=== PATIENT | female | born 1950 | race Caucasian/White ===

== ENCOUNTER 2017-06-12 11:36 | Emergency (ER) | payer MEDICARE, BC, OTHER ==
[2017-06-12 11:56] VITALS: BP 114/73
--- NOTE | 2017-06-12 12:32 | UC ---
Respiratory Complaint HPI - HPI Summary HPI Summary: Pt presents with a 6 day history of sinus congestion/pain/pressure, PND, and productive cough. She has a history of chronic sinusitis and is seeing ENT in 3 days. She has been using OTC dayquil and nyquil with mild relief. Has felt feverish and chills at times with some loose stools. Denies chest pain, N/V/D/C , or sore throat. - History of Current Complaint Hx Obtained From: Patient Onset/Duration: Gradual Onset Severity Initially: Moderate Severity Currently: Moderate Pain Intensity: 6 Pain Scale Used: 0-10 Numeric Character: Cough: Productive Aggravating Factors: Exertion, Deep Breaths Alleviating Factors: OTC Meds Associated Signs And Symptoms: Positive: Fever, Wheezing. Negative: Dizziness <Janes Wolf - Last Filed: 06/12/17 17:39> <Esmer Ly - Last Filed: 06/12/17 19:04> - History of Current Complaint Chief Complaint: UCRespiratory Stated Complaint: RESPIRATORY COMPLAINT - Allergies/Home Medications Allergies/Adverse Reactions: Allergies Allergy/AdvReac Type Severity Reaction Status Date / Time Ampicillin Allergy Hives Verified 06/07/12 14:27 Penicillins Allergy Hives Verified 06/07/12 14:27 PMH/Surg Hx/FS Hx/Imm Hx Previously Healthy: Yes - Surgical History Surgical History: Yes Surgery Procedure, Year, and Place: 1998 LEFT ACL RECONSTRUCTION, [facility] [place]. 2007 LEFT KNEE ARTHROSCOPIC SURGERY, [facility] [place], may 2012 LEFT MENISCUS REPAIR - Social History Occupation: Retired Lives: Alone Alcohol Use: Daily Substance Use Type: None Smoking Status (MU): Never Smoked Tobacco <Janes Wolf - Last Filed: 06/12/17 17:39> Review of Systems Constitutional: Fever, Chills Skin: Negative Eyes: Negative ENT: Nasal Discharge, Sinus Congestion, Sinus Pain/Tenderness Respiratory: Shortness Of Breath, Cough Cardiovascular: Negative Gastrointestinal: Other - Loose stools Genitourinary: Negative Neurovascular: Negative Musculoskeletal: Negative Neurological: Headache Psychological: Negative All Other Systems Reviewed And Are Negative: Yes <Janes Wolf - Last Filed: 06/12/17 17:39> Physical Exam Triage Information Reviewed: Yes Appearance: Well-Nourished, Ill-Appearing Vital Signs: Initial Vital Signs Temp 98.2 F 06/12/17 11:51 Pulse 76 06/12/17 11:51 Resp 18 06/12/17 11:51 BP 114/73 06/12/17 11:51 Pulse Ox 96 06/12/17 11:51 Vital Signs Reviewed: Yes Eyes: Positive: Conjunctiva Clear ENT: Positive: Hearing grossly normal, Pharyngeal erythema, Nasal congestion, Nasal drainage, TMs normal, Sinus tenderness. Negative: TM bulging, TM dull, TM red, Tonsillar swelling, Tonsillar exudate Neck: Positive: Supple, Nontender, No Lymphadenopathy Respiratory: Positive: Chest non-tender, No respiratory distress, No accessory muscle use, Decreased breath sounds - Throughout, Crackles - RML, Wheezing - Throughout Cardiovascular: Positive: RRR, No Murmur, Pulses Normal Abdomen Description: Positive: Nontender, Soft. Negative: Distended, Guarding Bowel Sounds: Positive: Present Neurological: Positive: Alert Psychological: Positive: Age Appropriate Behavior Skin: Negative: rashes <Janes Wolf - Last Filed: 06/12/17 17:39> Vital Signs: Initial Vital Signs Temp 98.2 F 06/12/17 11:51 Pulse 76 06/12/17 11:51 Resp 18 06/12/17 11:51 BP 114/73 06/12/17 11:51 Pulse Ox 96 06/12/17 11:51 <Esmer Ly - Last Filed: 06/12/17 19:04> Diagnostic Evaluation - Laboratory O2 Sat by Pulse Oximetry: 96 <Janes Wolf - Last Filed: 06/12/17 17:39> Respiratory Course/Dx - Course Course Of Treatment: CXR - RIGHT MIDLUNG CONSOLIDATION. RECOMMEND FOLLOW-UP UNTIL RESOLUTION TO EXCLUDE UNDERLYING PULMONARY PARENCHYMAL PATHOLOGY. Rx for levaquin and albuterol. Follow up with PCP in 4-6 weeks to ensure PNA resolution - Differential Dx/Diagnosis Differential Diagnosis/HQI/PQRI: Asthma, Bronchitis, Influenza, Lower Resp Infection, Sinusitis, Other - PNA. Provider Diagnoses: RML Pneumonia. Sinusitis <Janes Wolf - Last Filed: 06/12/17 17:39> Discharge <Janes Wolf - Last Filed: 06/12/17 17:39> <Esmer Ly - Last Filed: 06/12/17 19:04> - Discharge Plan Condition: Stable Disposition: HOME Prescriptions: Albuterol HFA INHALER* [Ventolin HFA Inhaler*] 1 - 2 puff INH Q6H PRN #1 mdi PRN Reason: Sob/Wheezing Levofloxacin TAB* [Levaquin TAB*] 750 mg PO DAILY #5 tab Patient Education Materials: Pneumonia (ED) Referrals: Yuri Nelson MD [Primary Care Provider] - Additional Instructions: 1) Levaquin 750mg once a day for 5 days. 2) Albuterol inhaler 2 puffs every 6 hours as needed for shortness of breath or cough. 3) Rest and drink plenty of fluids! 4) Follow up in 4-6 weeks with your PCP regarding pneumonia. If you develop fever, SOB, chest pain, new or worsening symptoms - please call our office or go to ED. Attestation Statement User Type: Provider - I was available for consult. This patient was seen by the PITO. The patient was not presented to, seen by, or examined by me. -Martin <Esmer Ly - Last Filed: 06/12/17 19:04>
--- NOTE | 2017-06-12 13:06 | RAD ---
HISTORY: Cough COMPARISONS: June 01, 2013 VIEWS: 5: Frontal dual-energy and lateral views of the chest. FINDINGS: CARDIOMEDIASTINAL SILHOUETTE: The cardiomediastinal silhouette is normal. ELLEN: The ellen are normal. PLEURA: The costophrenic angles are sharp. No pleural abnormalities are noted. LUNG PARENCHYMA: There is confluent alveolar opacification of the right middle lobe. There is hyperinflation. ABDOMEN: The upper abdomen is clear. There is no subphrenic gas. BONES AND SOFT TISSUES: No bone or soft tissue abnormalities are noted. OTHER: None. IMPRESSION: RIGHT MIDLUNG CONSOLIDATION. RECOMMEND FOLLOW-UP UNTIL RESOLUTION TO EXCLUDE UNDERLYING PULMONARY PARENCHYMAL PATHOLOGY.
== END 2017-06-12 13:30 | disposition home or self-care (01) ==
LOC: UCEAST 11:36
DX: J18.9 Pneumonia, unspecified organism (principal); J32.9 Chronic sinusitis, unspecified; Z88.0 Allergy status to penicillin; Z88.1 Allergy status to other antibiotic agents
CPT/HCPCS: 71020; 99212; G0463

== ENCOUNTER 2018-12-25 15:46 | Emergency (ER) | payer MEDICARE, BC ==
--- OUTSIDE RECORDS SUMMARY | 2018-12-25 16:06 | XMS REPORT | Continuity of Care Document ---
:1950 External Reference #:[id number] Author Name Facundo Esquivel M.D. Address [address] [facility] [address] [place] [address] Care Team Providers Name Role Phone Yuri Nelson M.D. Primary Care Physician Unavailable Payers Date Identification Numbers Payment Provider Subscriber Policy Number: [id number] Medicare - NGS Esha Carrionon PayID: [id number] [address] [place] [address] Policy Number: [id number] [place] Plan Esha Boucher PayID: [id number] [address] [place] [address] Advance Directives Description No Information Available Problems Active Problems Provider Date Posterior vitreous detachment Heidi Dodson O.D. Onset: 12/23/2014 Meibomian gland dysfunction Heidi Dodson O.D. Onset: 12/23/2014 Nuclear senile cataract Heidi Dodson O.D. Onset: 12/23/2014 Dry eyes Heidi Dodson O.D. Onset: 12/23/2014 Tear film insufficiency Heidi Dodson O.D. Onset: 12/23/2014 Internal hordeolum Heidi Dosdon O.D. Onset: 12/23/2014 Angular blepharoconjunctivitis Heidi Dodson O.D. Onset: 06/16/2015 Other secondary cataract, left eye Derik Brown M.D. Onset: 08/07/2017 Retinal detachment Derik Brown M.D. Onset: 08/07/2017 Conjunctival hemorrhage Facundo Esquivel M.D. Onset: 07/16/2018 Blepharitis Facundo Esquivel M.D. 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 ETOH Use Consumes 2 glasses of wine per day Tobacco Use Start: Unknown Patient has never smoked Recreational Drug Use Never Used Drugs Smoking Status Reviewed: 12/03/18 Patient has never smoked Allergies, Adverse Reactions, Alerts Active Allergies Reaction Severity Comments Date Penicillin 12/23/2014 Ampicillin 12/23/2014 Hydrocodone 07/16/2018 Medications Active Medications SIG Qnty Indications Ordering Date Provider Doxycycline Hyclate 1 caps by mouth 45caps H10.523 Facundo 12/03/2018 twice a day for 2 Angie Esquivel 100mg Capsules weeks then once a day for 2 weeks, then discontinue Neomycin/Polymyxin/ Instill One Drop 10units H01.001 Facundo 08/14/2018 Dexamethasone In Both Eyes 3 Angie Esquivel Times A Day For 2 3.5-75323-2.1 Weeks Thenstop Suspension Erythromycin Apply To Both Eyes 1Tube Facundo 08/14/2018 5mg/GM AT Night Angie Esquivel Ointment Artificial Tears as needed Facundo 07/15/2018 Angie Esquivel 0.2-0.2-1% Solution Xiidra Instill 1 Drop To 180units H04.123 Derik Brown, 08/07/2017 5% Solution Both Eyes Twice A M.D. Day Warm Compresses twice daily - rice Heidi Dodson, 12/22/2014 packs O.D. Turmeric Unknown Doxycycline as needed Mckeithen, Monohydrate Marcos RPA-C 100mg Capsules Clobetasol Mckeithen, Propionate Marcos RPA-C 0.05% Ointment Vitamin B Complex Unknown Tablets Fish Oil 1 by mouth every Heidi Dodson, 1000mg day O.D. Capsules Aspirin Unknown 81mg Tablets Calcium 500 1 by mouth every Unknown day [id number]-mg-Un it Tablets History Medications Neomycin/Polymyxin/Dexamethasone apply one 10ml H01.001 Facundo 2017 - 0.1% Suspension drop to Alvin, 08/14/2018 both eyes, M.D. three times a day for 2 weeks Artificial Tears as needed Heidi Rosen 06/15/2015 - 0.4% Solution Oltz, O.D. 08/06/2017 Genteal PM both eyes Heidi Rosen 06/15/2015 - 85-15% Ointment every Oltz, O.D. 08/06/2017 night Estrace 0.1mg/GM Unknown - Cream 01/01/2016 Immunizations Description No Information Available Vital Signs Description No Information Available Results Description No Information Available Procedures Date Code Description Status 02/06/2018 24279 Est Patient Comprehensive Exam Completed 08/07/2017 38267 Determination Of Refractive State Completed 08/07/2017 97040 Est Patient Comprehensive Exam Completed 01/02/2016 81202 Est Patient Intermediate Exam Completed 06/16/2015 68740 Est Patient Intermediate Exam Completed 10/28/2014 521 Verdon Tears Plus Completed 10/28/2014 518 Genteal Gel Completed 10/24/2014 521 Verdon Tears Plus Completed 10/24/2014 523 Goggles Completed 10/08/2014 70957 Est Patient Comprehensive Exam Completed 10/08/2014 521 Verdon Tears Plus Completed 11/16/2013 36337 Est Patient Intermediate Exam Completed 09/21/2013 17777 Est Patient Comprehensive Exam Completed 03/30/2012 28908 Est Patient Comprehensive Exam Completed 03/17/2011 28123 Est Patient Intermediate Exam Completed 09/03/2010 95469 New Patient Comprehensive Exam Completed 09/03/2010 64027 Repair Detached Retina, Photocoagulation Completed Encounters Type Date Location Provider Dx Diagnosis Office Visit 07/16/2018 Facundo Canelaravivin, H04.123 Dry eye syndrome 12:00p , randall Adams of bilateral lacrimal glands H11.32 Conjunctival hemorrhage, left eye H01.001 Unspecified blepharitis right upper eyelid H01.004 Unspecified blepharitis left upper eyelid Office Visit 12/23/2014 12:30p Heidi Canela 375.15 Dry Eyes (Sicca , randall Dodson O.D. Syndrome) 373.12 Meibomitis Office Visit 11/18/2014 12:15p Heidi Canela, 373.12 Jelena VU, randall Wallace 375.15 Dry Eyes (Sicca Syndrome) Office Visit 10/28/2014 12:15p Heidi Canela, 373.12 Jelena VU, randall Wallace 375.15 Dry Eyes (Sicca Syndrome) Office Visit 10/15/2013 1:00p Derik Rosen 373.12 Jelena Brown MD, randall Dodson O.D. Office Visit 10/18/2010 2:45p Derik Rosen 379.21 Vitreous MD Stephanie, randall Dodson O.D. Degeneration Plan of Treatment 12/03/2018 - Facundo Esquivel M.D.H10.523 Angular blepharoconjunctivitis, bilateralNew Medication:Doxycycline Hyclate 100 mg - 1 caps by mouth twice a day for 2 weeks then once a day for 2 weeks, then discontinueComments:Smoking can increase the risk of developing or worsening any eye related disease, as well as affect your overall health. If you are a smoker, we strongly recommend that you quit.If you are not a smoker, we strongly recommend that you do not start. TAKE THE DOXYCYCLINE ONE PILL TWICE A DAY FOR 2 WEEKS, THEN DECREASE TO ONCE A DAY FOR 2 WEEKS. I WILL CHECK ON YOU AGAIN IN 1 MONTHCONTINUE TO USE THE ARTIFICAL TEARS, XIIDRA AND WARM COMPRESSUSE BABY SHAMPOO ON A WASH CLOTH TO CLEAN THE EYE LASHES A COUPLE TIMES A WEEKTRY AN OVER THE COUNTER ALLERGY DROP, ZADITOR, TWICE A DAY WHEN THE EYE FEEL ITCHY FOR ALLERGY
--- NOTE | 2018-12-25 16:54 | ED ---
Abdominal Pain/Female - HPI Summary HPI Summary: Pt is a 68 y/o F presenting to the ED with a chief complaint of abd pain in the epigastric region onset this morning. She has hx of an epigastric hernia which has never bothered her, but today it began to hurt so she called her physician who recommended coming into the ED. She denies nausea, vomiting, CP, SOB, diarrhea, or constipation. She states the only other time she has this pain is if she exercises. - History of Current Complaint Chief Complaint: EDAbdPain Stated Complaint: ABD PAIN PER PT Time Seen by Provider: 12/25/18 16:43 Hx Obtained From: Patient Onset/Duration: Sudden Onset, Lasting Hours, Still Present Timing: Hours Severity Initially: Mild Severity Currently: Mild Pain Intensity: 3 Pain Scale Used: 0-10 Numeric Location: Epigastric Radiates: No Aggravating Factor(s): Nothing Alleviating Factor(s): Nothing Associated Signs and Symptoms: Negative: Chest Pain, Constipation, Nausea, Vomiting, Diarrhea Allergies/Adverse Reactions: Allergies Allergy/AdvReac Type Severity Reaction Status Date / Time ampicillin Allergy Hives Verified 12/25/18 17:21 oxycodone Allergy Hives Verified 12/25/18 17:21 Penicillins Allergy Hives Verified 12/25/18 17:21 Home Medications: Home Medications DOXYcycline CAP(*) [DOXYcycline 100MG CAP(*)] 100 mg PO DAILY 12/25/18 [History Confirmed 12/25/18] Kennard-3 Fatty Acids/Fish Oil [Fish Oil 1,000 mg Softgel] 2 each PO DAILY [History Confirmed 12/25/18] Vitamin B Complex CAP* [B Complex CAP*] 1 cap PO DAILY 12/25/18 [History Confirmed 12/25/18] PMH/Surg Hx/FS Hx/Imm Hx Previously Healthy: Yes Endocrine/Hematology History: Denies: Hx Diabetes Cardiovascular History: Denies: Hx Hypertension, Hx Pacemaker/ICD Respiratory History: Denies: Hx Asthma GI History: Reports: Other GI Disorders - epigastric hernia History: Denies: Hx Dialysis, Hx Renal Disease Musculoskeletal History: Reports: Hx Arthritis - RIGHT WRIST Denies: Hx Scoliosis Sensory History: Reports: Hx Contacts or Glasses - GLASSES Denies: Hx Hearing Aid Opthamlomology History: Reports: Hx Contacts or Glasses - GLASSES Neurological History: Denies: Hx Headaches, Other Neuro Impairments/Disorders Psychiatric History: Denies: Hx Panic Disorder - Cancer History Hx Chemotherapy: No Hx Radiation Therapy: No - Surgical History Surgery Procedure, Year, and Place: 1998 LEFT ACL RECONSTRUCTION, [facility] [place]. 2007 LEFT KNEE ARTHROSCOPIC SURGERY, [facility] [place], [place] 2012 LEFT MENISCUS REPAIR. 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 Negative: Vomiting, Diarrhea, Nausea, Other - constipation All Other Systems Reviewed And Are Negative: Yes Physical Exam - Summary Physical Exam Summary: Appearance: Well appearing, no pain distress Skin: warm, dry, reflects adequate perfusion Head/face: normal Eyes: EOMI, MARLYN ENT: normal Neck: supple, non-tender Respiratory: CTA, breath sounds present Cardiovascular: RRR, pulses symmetrical Abdomen: Epigastric hernia that is tender Musculoskeletal: normal, strength/ROM intact Neuro: normal, sensory motor intact, A&Ox3 Triage Information Reviewed: Yes Vital Signs On Initial Exam: Initial Vitals Temp Pulse Resp BP Pulse Ox 98.1 F 73 18 136/92 96 12/25/18 15:48 12/25/18 15:48 12/25/18 15:48 12/25/18 15:48 12/25/18 15:48 Vital Signs Reviewed: Yes Diagnostics - Vital Signs Vital Signs Temp Pulse Resp BP Pulse Ox 12/25/18 15:48 98.1 F 73 18 136/92 96 - Laboratory Result Diagrams: 12/25/18 17:12 12/25/18 17:12 Lab Statement: Any lab studies that have been ordered have been reviewed, and results considered in the medical decision making process. - Radiology CXR Radiology Interpretation Completed By: ED Physician Summary of Radiographic Findings: No acute process, pending official radiology report. - CT CT abd/pelv CT Interpretation Completed By: Radiologist Summary of CT Findings: 1. Approximately 6 cm midsagittal ventral fat containing abdominal wall hernia with associated fat stranding. 2. Mild to moderate stool burden throughout the colon. 3. Other chronic findings, as above. ED physician has reviewed this report. - EKG 2018 Cardiac Rate: Bradycardia - 56bpm EKG Rhythm: Sinus Bradycardia ST Segment: Normal Ectopy: None Summary of EKG Findings: EKG at 2018 shows sinus bradycardia at 58bpm. Abdominal Pain Fem Course/Dx - Course Course Of Treatment: Pt is a 68 y/o F presenting to the ED with a chief complaint of abd pain in the epigastric region onset this morning. She denies nausea, vomiting, CP, SOB, diarrhea, or constipation. She states the only other time she has this pain is if she exercises. CT abd/pelv shows: 1. Approximately 6 cm midsagittal ventral fat containing abdominal wall hernia with associated fat stranding. 2. Mild to moderate stool burden throughout the colon. 3. Other chronic findings, as above. I discussed the results with the patient and told her that she had the option to be admitted to [facility] [place] to further her workup. She opted to go home, so I recommended she follow up with Dr. Sullivan tomorrow to get the hernia repaired. She is agreeable with this plan. A CXR and EKG will be done prior to d/c, but her dx will be incarcerated ventral hernia. CXR shows no acute proces, pending official radiology report. EKG at 2018 shows sinus bradycardia at 58bpm. - Diagnoses Differential Diagnosis: Positive: Other - v hernia Provider Diagnoses: Incarcerated ventral hernia Discharge - Sign-Out/Discharge Documenting (check all that apply): Patient Departure Patient Received Moderate/Deep Sedation with Procedure: No - Discharge Plan Condition: Stable Disposition: HOME Patient Education Materials: Ventral Hernia (ED) Referrals: Yuri Nelson MD [Primary Care Provider] - [facility] [Outside] Additional Instructions: Please follow up with Dr. Sullivan tomorrow morning. Return to the emergency department with any new or worsening symptoms. - Billing Disposition and Condition Condition: STABLE Disposition: Home - Attestation Statements Document Initiated by Scribe: Yes Documenting Scribe: Bre Guerrero Provider For Whom Eloiseibe is Documenting (Include Credential): Pato Davis MD. Scribe Attestation: Bre Leonard, scribed for Pato Davis MD. on 12/25/18 at 2039. Scribe Documentation Reviewed: Yes Provider Attestation: The documentation as recorded by the scribe, Bre Guerrero accurately reflects the service I personally performed and the decisions made by me, Pato Davis MD. Status of Scribe Document: Viewed
[2018-12-25] MEDS ORDERED: NS 0.9% 1000 ML** 1,000 ML IV SCH (17:00)
[2018-12-25 17:22] LABS: ABS Basophils 0.1 10^3/ul (0-0.2); ABS Eosinophils 0.3 10^3/ul (0-0.6); ABS Lymphocytes 2.2 10^3/ul (1.0-4.8); ABS Monocytes 0.4 10^3/ul (0-0.8); ABS Neutrophils 3.6 10^3/ul (1.5-7.7); Eosinophil % 4.3 %; Hematocrit 41 % (35-47); Hemoglobin 13.8 g/dL (12.0-16.0); Lymphocyte % 33.7 %; Mean Corpuscular HGB Conc 34 g/dL (31-36); Mean Corpuscular Hemoglobin 33 pg (27-31); Mean Corpuscular Volume 99 fL (80-97); Mean Platelet Volume 6.7 fL (7.4-10.4); Platelet Count 231 10^3/uL (150-450); Red Blood Count 4.17 10^6 /uL (3.70-4.87); Red Cell Distribution Width 14 % (10.5-15); White Blood Count 6.6 10^3/uL (3.5-10.8)
[2018-12-25 17:40] LABS: Activated Partial Thrombo Time 29.5 seconds (26.0-36.3)
[2018-12-25 17:53] LABS: Albumin/Globulin Ratio 1.6 (1-3); Calcium 9.2 mg/dL (8.6-10.3); EGFR African American 93.9 (>60); EGFR Non-African American 77.6 (>60); Globulin 2.5 g/dL (2-4); Potassium 4.4 mmol/L (3.5-5.0); Total Bilirubin 0.3 mg/dL (0.2-1.0); Total Protein 6.5 g/dL (6.4-8.9)
[2018-12-25] MEDS ORDERED: Iohexol 300* (CONTRAST) 10 ML SDV IV ONE (17:56)
[2018-12-25 20:54] VITALS: BP 141/81
== END 2018-12-25 21:15 | disposition home or self-care (01) ==
LOC: ED 15:46
DX: K43.9 Ventral hernia without obstruction or gangrene (principal); R10.13 Epigastric pain; Z88.0 Allergy status to penicillin
CPT/HCPCS: 36415; 71046; 74177; 80053; 83605; 83690; 85025; 85610; 85730; 93005; 96360; 96361; 99283; Q9967

== ENCOUNTER 2019-01-07 10:29 | Day surgery (SDC) | payer MEDICARE, BC ==
[~2019-01-07 10:29] MED LIST: Buffered Lidocaine 1% SYRIN* 1 ML/SYRINGE INTRADERM ONE; Dexamethasone IV* 4 MG/ML 1 ML (4 MG) IV SLOW PU ONE; Famotidine TAB* 20 MG PO ONE; Lactated Ringers 1000 ML Bag* 1,000 ML IV SCH
[2019-01-07] MEDS ORDERED: Clindamycin 900 MG IVPREMIX(* 900 MG/50 ML SDV IV ONE (11:00)
[2019-01-07] MEDS ORDERED: Dexamethasone IV* 4 MG/ML 1 ML (4 MG) ONE (11:00)
[2019-01-07] MEDS ORDERED: Famotidine TAB* 20 MG ONE (11:00)
[2019-01-07] MEDS ORDERED: Buffered Lidocaine 1% SYRIN* 1 ML/SYRINGE INTRADERM ONE (11:01)
[2019-01-07] MEDS ORDERED: fentaNYL* 50 MCG/ML 2 ML VIAL (100 MCG VIAL) ONE (12:08)
[2019-01-07] MEDS ORDERED: Midazolam* 1 MG/ML 2 ML VIAL (2 MG) ONE (12:09)
[2019-01-07] MEDS ORDERED: Propofol* 10 MG/ML 20 ML BTL ONE (12:09)
[2019-01-07] MEDS ORDERED: Acetaminophen TAB* 325 MG PO PRN (12:48)
[2019-01-07] MEDS ORDERED: Ondansetron INJ* 2 MG/ML VIAL IV PRN (12:48)
[2019-01-07] MEDS ORDERED: fentaNYL* 50 MCG/ML 2 ML VIAL (100 MCG VIAL) IV PRN (12:48)
[2019-01-07] MEDS ORDERED: oxyCODONE/Acetamin 5/325 MG* TAB PO PRN (12:48)
[2019-01-07] MEDS ORDERED: Naloxone* 0.4 MG/ML 1 ML VIAL IV PRN (12:48)
[2019-01-07] MEDS ORDERED: Ketorolac INJ* 30 MG/ML 1 ML VIAL IV PRN (12:48)
[2019-01-07] MEDS ORDERED: Bupivacaine 0.5%* 50 ML VIAL ONE (12:58)
[2019-01-07 15:17] VITALS: BP 136/83
--- NOTE | 2019-01-07 15:22 | OP ---
DATE OF OPERATION: 01/07/19 - [facility] DATE OF : 46 SURGEON: Facundo Clark MD PRE-OP DIAGNOSIS: Incarcerated ventral hernia. POST-OP DIAGNOSIS: Incarcerated ventral hernia. OPERATIVE PROCEDURE: Incarcerated ventral hernia, open repair, mesh. INDICATIONS: Incarcerated ventral hernia. Risks of surgery including but not limited to bleeding, infection, injury to intraabdominal contents including the bowel, recurrence of the hernia among others explained to the patient, who seemed to understand and agreed to procedure and all questions were answered. DESCRIPTION OF PROCEDURE: The patient was taken to the operating room and placed supine. Preoperative antibiotics had been given. After the successful induction of sedation, the abdomen was prepped and draped in sterile fashion. Time-out was performed indicating correct patient, correct procedure. A midline incision was made after the skin was anesthetized with Marcaine. It was carried down to the subcutaneous tissue and a peritoneal sac was entered exposing some incarcerated omentum. This was freed up from the surrounding tissue and reduced back to within the abdominal cavity. The defect was then examined. My finger was placed to the defect and the anterior abdominal wall was swept and found to be free of adhesions. The defect was about 1.5 cm. A Ventralex mesh was then placed through the defect and pulled up against the anterior abdominal wall and sutured to place with interrupted 0-Vicryl sutures. The deep layer of subcutaneous fat was closed with running 3-0 Vicryl suture. The skin was closed with 3-0 Monocryl. Glue was applied. The patient tolerated the procedure well. She was taken to Recovery in stable condition. [id number]/[facility] #: [id number] [facility]
== END 2019-01-07 15:25 | disposition home or self-care (01) ==
LOC: OR 10:29
PROVIDERS: ATTEND Surgery
DX: K40.30 Unilateral inguinal hernia, with obstruction, without gangrene, not specified as recurrent (principal); Z72.0 Tobacco use; J45.909 Unspecified asthma, uncomplicated; K21.9 Gastro-esophageal reflux disease without esophagitis
CPT/HCPCS: A9270-GY; C1781; J1100; J2250; J2704; J3010; J3490

== ENCOUNTER 2021-01-29 13:45 | Inpatient (IN) ==
[2021-01-29] MEDS ORDERED: NS 0.9% 1000 ml BAG 1,000 ML IV ONE ×2 (14:07→14:22)
[2021-01-29 14:49] LABS: ABS Lymphocytes 0.3 10^3/ul (1.0-4.8); ABS Monocytes 0.1 10^3/ul (0-0.8); ABS Neutrophils 2.1 10^3/ul (1.5-7.7); Hematocrit 41 % (35-47); Hemoglobin 14.3 g/dL (12.0-16.0); Lymphocyte % 13.8 %; Mean Corpuscular HGB Conc 35 g/dL (31-36); Mean Corpuscular Hemoglobin 34 pg (27-31); Mean Corpuscular Volume 97 fL (80-97); Mean Platelet Volume 7.7 fL (7.4-10.4); Nucleated Red Blood Cells % 0.3; Platelet Count 46 10^3/uL (150-450); Red Blood Count 4.22 10^6 /uL (3.70-4.87); Red Cell Distribution Width 14 % (10-15); White Blood Count 2.5 10^3/uL (3.5-10.8)
[2021-01-29 14:52] LABS: INR 1.29 (0.86-1.15)
[2021-01-29 14:57] LABS: Albumin 3.8 g/dL (3.2-5.2); Albumin/Globulin Ratio 1.4 (1-3); C Reactive Protein 180.87 mg/L (<8.01); Calcium 8.6 mg/dL (8.6-10.3); EGFR African American 78.5 (>60); EGFR Non-African American 64.9 (>60); Globulin 2.7 g/dL (2-4); Magnesium 1.8 mg/dL (1.9-2.7); Potassium 4.1 mmol/L (3.5-5.0); Total Bilirubin 0.5 mg/dL (0.2-1.0); Total Protein 6.5 g/dL (6.4-8.9)
[2021-01-29 14:58] LABS: Troponin I 0.01 ng/mL (<0.03)
[2021-01-29 15:52] LABS: TSH Ultra Thyroid Stim Horm 1.7 mcIU/mL (0.34-5.60)
[2021-01-29 16:14] LABS: Urine Appearance Cloudy; Urine Bilirubin Negative (Negative); Urine Blood 1+ (Negative); Urine Color Amber; Urine Glucose Negative (Negative); Urine Ketones Trace (Negative); Urine Nitrite Negative (Negative); Urine Protein 2+(100 mg/dL) (Negative); Urine Specific Gravity 1.021 (1.002-1.030); Urine Urobilinogen Negative (Negative)
[2021-01-29 16:18] LABS: Urine Bacteria 1+ (Absent); Urine Red Blood Cell 3+(>10/hpf) (Absent); Urine Squamous Epithelial Cell Present (Absent); Urine Transitional Epithelial Present (Absent); Urine White Blood Cell 3+(>20/hpf) (Absent)
[2021-01-29] MEDS ORDERED: cefTRIAXone 1 gm/50 mL NS BAG 1 GM/50 ML BAG IV ONE (16:22)
[2021-01-29] MEDS ORDERED: NS 0.9% 1000 ml BAG 1,000 ML IV SCH (17:45)
[2021-01-29] MEDS: Ondansetron 4 mg VIAL 2 MG/ML 2 ml VIAL IV PRN (17:46)
[2021-01-29 18:37] LABS: Erythrocyte Sed Rate 24 mm/Hr (0-29)
[2021-01-30 07:12] LABS: ABS Lymphocytes 0.4 10^3/ul (1.0-4.8); ABS Monocytes 0.1 10^3/ul (0-0.8); ABS Neutrophils 1.2 10^3/ul (1.5-7.7); Hematocrit 35 % (35-47); Hemoglobin 12.3 g/dL (12.0-16.0); Lymphocyte % 25.3 %; Mean Corpuscular HGB Conc 35 g/dL (31-36); Mean Corpuscular Hemoglobin 34 pg (27-31); Mean Corpuscular Volume 97 fL (80-97); Mean Platelet Volume 9.3 fL (7.4-10.4); Nucleated Red Blood Cells % 0.1; Platelet Count 46 10^3/uL (150-450); Red Blood Count 3.59 10^6 /uL (3.70-4.87); Red Cell Distribution Width 14 % (10-15); White Blood Count 1.7 10^3/uL (3.5-10.8)
[2021-01-30 07:25] LABS: Anion Gap 5 mmol/L (2-11); Blood Urea Nitrogen 12 mg/dL (6-24); CO2 Carbon Dioxide 24 mmol/L (22-32); Calcium 7.8 mg/dL (8.6-10.3); Chloride 105 mmol/L (101-111); EGFR African American 90.5 (>60); EGFR Non-African American 74.8 (>60); Glucose 86 mg/dL (70-100); Potassium 3.8 mmol/L (3.5-5.0); Sodium 134 mmol/L (135-145)
[2021-01-30 09:40] LABS: Folate > 20.00 ng/mL (5.90-24.80)
[2021-01-30 09:42] LABS: Vitamin B12 684 pg/mL (180-914)
[2021-01-30] MEDS ORDERED: NS 0.9% 500 ml BAG 500 ML IV ONE (12:41)
[2021-01-30] MEDS: Ondansetron 4 mg VIAL 2 MG/ML 2 ml VIAL IV PRN (16:52)
[2021-01-30] MEDS: cefTRIAXone 1 gm/50 mL NS BAG 1 GM/50 ML BAG IVPB SCH (16:52)
[2021-01-30] MEDS: NS 0.9% 1000 ml BAG 1,000 ML IV SCH (18:40)
[2021-01-31] MEDS: Ondansetron 4 mg VIAL 2 MG/ML 2 ml VIAL IV PRN ×2 (03:34→20:26)
[2021-01-31] MEDS: NS 0.9% 1000 ml BAG 1,000 ML IV SCH ×2 (05:07→16:35)
[2021-01-31 05:28] LABS: Hematocrit 34 % (35-47); Hemoglobin 12.1 g/dL (12.0-16.0); Mean Corpuscular HGB Conc 35 g/dL (31-36); Mean Corpuscular Hemoglobin 34 pg (27-31); Mean Corpuscular Volume 98 fL (80-97); Platelet Count 49 10^3/uL (150-450); Red Blood Count 3.52 10^6 /uL (3.70-4.87); Red Cell Distribution Width 14 % (10-15); White Blood Count 2.4 10^3/uL (3.5-10.8)
[2021-01-31 05:38] LABS: Albumin 2.8 g/dL (3.2-5.2); Albumin/Globulin Ratio 1.1 (1-3); C Reactive Protein 100.03 mg/L (<8.01); Calcium 7.9 mg/dL (8.6-10.3); EGFR African American 112.4 (>60); EGFR Non-African American 92.9 (>60); Globulin 2.5 g/dL (2-4); Magnesium 1.8 mg/dL (1.9-2.7); Potassium 3.8 mmol/L (3.5-5.0); Total Bilirubin 0.3 mg/dL (0.2-1.0); Total Protein 5.3 g/dL (6.4-8.9)
[2021-01-31 05:46] LABS: ABS Lymphocytes 1.1 10^3/ul (1.0-4.8); ABS Monocytes 0.3 10^3/ul (0-0.8); Anisocytosis 1+; Eosinophil % 0.1 %; Lymphocyte % 47.1 %; Macrocytosis 1+
[2021-01-31] MEDS ORDERED: Magnesium Sulfate 2 gm BAG 2 GM/50 ML BAG IVPB ONE (07:46)
[2021-01-31] MEDS: cefTRIAXone 1 gm/50 mL NS BAG 1 GM/50 ML BAG IVPB SCH (14:33)
[2021-01-31 21:14] LABS: RBC Parasite Smear No Parasites Seen (No Parasite)
[2021-02-01] MEDS: NS 0.9% 1000 ml BAG 1,000 ML IV SCH (02:42)
[2021-02-01 07:05] LABS: Hematocrit 35 % (35-47); Hemoglobin 12.4 g/dL (12.0-16.0); Mean Corpuscular HGB Conc 36 g/dL (31-36); Mean Corpuscular Hemoglobin 35 pg (27-31); Mean Corpuscular Volume 97 fL (80-97); Mean Platelet Volume 8.9 fL (7.4-10.4); Platelet Count 62 10^3/uL (150-450); Red Blood Count 3.57 10^6 /uL (3.70-4.87); Red Cell Distribution Width 14 % (10-15); White Blood Count 4.3 10^3/uL (3.5-10.8)
[2021-02-01 07:19] LABS: Calcium 7.9 mg/dL (8.6-10.3); EGFR African American 104.7 (>60); EGFR Non-African American 86.5 (>60); Potassium 3.8 mmol/L (3.5-5.0)
[2021-02-01 08:22] LABS: ABS Lymphocytes 2.7 10^3/ul (1.0-4.8); ABS Monocytes 0.3 10^3/ul (0-0.8); ABS Neutrophils 1.3 10^3/ul (1.5-7.7); Eosinophil % 0.2 %; Nucleated Red Blood Cells % 0.1; RBC Morphology Normal (Normal)
[2021-02-01] MEDS: cefTRIAXone 1 gm/50 mL NS BAG 1 GM/50 ML BAG IVPB SCH (17:39)
[2021-02-01 18:57] LABS: Albumin/Globulin Ratio 1.3 (1-3); Direct Bilirubin 0.1 mg/dL (0.03-0.18); Globulin 2.3 g/dL (2-4); Indirect Bilirubin 0.2 mg/dL (0.3-1.0); Total Bilirubin 0.3 mg/dL (0.2-1.0); Total Protein 5.3 g/dL (6.4-8.9)
[2021-02-01] MEDS: Heparin 5000 UNITS/ML 1 mL VIAL SUBCUT SCH (21:35)
[2021-02-02] MEDS: Heparin 5000 UNITS/ML 1 mL VIAL SUBCUT SCH ×2 (04:57→14:41)
[2021-02-02 06:36] LABS: Hematocrit 36 % (35-47); Hemoglobin 12.1 g/dL (12.0-16.0); Mean Corpuscular HGB Conc 34 g/dL (31-36); Mean Corpuscular Hemoglobin 34 pg (27-31); Mean Corpuscular Volume 98 fL (80-97); Mean Platelet Volume 8.5 fL (7.4-10.4); Platelet Count 103 10^3/uL (150-450); Red Blood Count 3.61 10^6 /uL (3.70-4.87); Red Cell Distribution Width 14 % (10-15); White Blood Count 5.9 10^3/uL (3.5-10.8)
[2021-02-02 07:02] LABS: Albumin 3.1 g/dL (3.2-5.2); Albumin/Globulin Ratio 1.2 (1-3); Calcium 8.4 mg/dL (8.6-10.3); EGFR African American 110.4 (>60); EGFR Non-African American 91.2 (>60); Globulin 2.5 g/dL (2-4); Potassium 4.3 mmol/L (3.5-5.0); Total Bilirubin 0.3 mg/dL (0.2-1.0); Total Protein 5.6 g/dL (6.4-8.9)
[2021-02-02 08:20] LABS: ABS Lymphocytes 4.4 10^3/ul (1.0-4.8); ABS Monocytes 0.4 10^3/ul (0-0.8); Eosinophil % 0.6 %; Lymphocyte % 74.2 %; Nucleated Red Blood Cells % 0.2; RBC Morphology Normal (Normal)
[2021-02-02 11:23] LABS: Direct Bilirubin 0.1 mg/dL (0.03-0.18)
[2021-02-02] MEDS ORDERED: Enoxaparin 40 MG/0.4 ML SYR SUBCUT SCH (15:00)
[2021-02-02] MEDS: cefTRIAXone 1 gm/50 mL NS BAG 1 GM/50 ML BAG IVPB SCH (15:59)
[2021-02-02 19:29] LABS: Anaplasma phagocytophilum Positive (Negative); B. miyamotoi PCR, B Negative (Negative); Babesia divergens/MO-1 Negative (Negative); Babesia ducani Negative (Negative); Ehrlichia chaffeensis Negative (Negative); Ehrlichia ewingii/canis Negative (Negative); Ehrlichia muris eauclairensis Negative (Negative)
[2021-02-03 05:30] LABS: Hematocrit 35 % (35-47); Hemoglobin 12.4 g/dL (12.0-16.0); Mean Corpuscular HGB Conc 35 g/dL (31-36); Mean Corpuscular Hemoglobin 34 pg (27-31); Mean Corpuscular Volume 97 fL (80-97); Mean Platelet Volume 7.8 fL (7.4-10.4); Platelet Count 157 10^3/uL (150-450); Red Cell Distribution Width 14 % (10-15); White Blood Count 5.8 10^3/uL (3.5-10.8)
[2021-02-03 05:37] LABS: INR 1.1 (0.86-1.15)
[2021-02-03 05:48] LABS: Albumin 3.3 g/dL (3.2-5.2); Albumin/Globulin Ratio 1.4 (1-3); C Reactive Protein 16.58 mg/L (<8.01); Calcium 8.7 mg/dL (8.6-10.3); Direct Bilirubin 0.1 mg/dL (0.03-0.18); EGFR African American 121.2 (>60); EGFR Non-African American 100.2 (>60); Globulin 2.3 g/dL (2-4); Indirect Bilirubin 0.2 mg/dL (0.3-1.0); Potassium 4.2 mmol/L (3.5-5.0); Total Bilirubin 0.3 mg/dL (0.2-1.0); Total Protein 5.6 g/dL (6.4-8.9)
[2021-02-03 07:53] LABS: ABS Eosinophils 0.1 10^3/ul (0-0.6); ABS Lymphocytes 3.6 10^3/ul (1.0-4.8); ABS Monocytes 0.5 10^3/ul (0-0.8); ABS Neutrophils 1.6 10^3/ul (1.5-7.7); Lymphocyte % 62.9 %
[2021-02-03 11:30] VITALS: BP 121/75
[2021-02-03 12:08] LABS: Hepatitis A Ab IgM Negative (Negative); Hepatitis B Core IgM Nonreactive (Nonreactive); Hepatitis B Surface Antigen Nonreactive (Nonreactive); Hepatitis C Antibody Negative (Negative)
== END 2021-02-03 11:35 | disposition home or self-care (01) | DRG 867 ==
LOC: ED 13:45 → MED 20:07
PROVIDERS: ADMIT Hospitalist; ATTEND Internal Medicine

== ENCOUNTER 2023-02-07 07:01 | Observation (INO) ==
[~2023-02-07 07:01] MED LIST changes: +Buffered Lidocaine 1% SYRIN 1 ml INTRADERM ONE; -Buffered Lidocaine 1% SYRIN* 1 ML/SYRINGE INTRADERM ONE; -Dexamethasone IV* 4 MG/ML 1 ML (4 MG) IV SLOW PU ONE; -Famotidine TAB* 20 MG PO ONE; -Lactated Ringers 1000 ML Bag* 1,000 ML IV SCH; +Lactated Ringers 1000 ml BAG 1,000 ML IV SCH
[2023-02-07] MEDS ORDERED: ceFAZolin 2 GM in NS PREMIX 2 GM/100 ML BAG IVPB ONE (07:25)
[2023-02-07] MEDS ORDERED: Prochlorperazine 5 mg/ml 2 ml VIAL (10 mg) IV PRN (07:31)
[2023-02-07] MEDS ORDERED: Naloxone 0.4 mg VIAL 0.4 mg/ml 1 ml VIAL IV PRN (07:31)
[2023-02-07] MEDS ORDERED: HYDROmorphone 1 MG/1 ML SYRINGE IV PRN (07:31)
[2023-02-07 07:41] LABS: Rapid COVID-19 Molecular Undetected (Undetected)
[2023-02-07] MEDS ORDERED: ROPIVACAINE 5 MG/ML 30 ML BTL (0.5%) ONE ×2 (08:21→08:32)
[2023-02-07] MEDS ORDERED: Midazolam 2 mg/2 ml VIAL 1 mg/ml 2 ml VIAL (2 mg) ONE (08:25)
[2023-02-07] MEDS ORDERED: fentaNYL 250 mcg/5 ml 50 MCG/ML 5 ml VIAL (250 MCG) ONE (08:25)
[2023-02-07] MEDS ORDERED: Magnesium Hydroxide LIQ 30 ML UDC PO PRN (08:45)
[2023-02-07] MEDS ORDERED: Ondansetron ODT 4 mg TAB 4 MG TAB PO PRN (08:45)
[2023-02-07] MEDS ORDERED: Ondansetron 4 mg VIAL 2 MG/ML 2 ml VIAL IV PRN (08:45)
[2023-02-07] MEDS ORDERED: Lactulose 30 ml UDC PO PRN (08:45)
[2023-02-07] MEDS ORDERED: Morphine 2 MG/ML SYRINGE IV PRN (08:45)
[2023-02-07] MEDS: Lactated Ringers 1000 ml BAG 1,000 ML IV SCH ×2 (13:41→23:42)
[2023-02-07] MEDS: Vitamin THERAPEUTIC TAB PO SCH (14:07)
[2023-02-07] MEDS: Magnesium Hydroxide LIQ 30 ML UDC PO SCH ×2 (14:07→21:19)
[2023-02-07] MEDS: ceFAZolin 1 GM ADVAN 1 GM in NS 0.9% 50 ML 50 ML IVPB SCH (17:12)
[2023-02-07] MEDS ORDERED: Lactated Ringers 1000 ml BAG 1,000 ML IV ONE (17:29)
[2023-02-08] MEDS: ceFAZolin 1 GM ADVAN 1 GM in NS 0.9% 50 ML 50 ML IVPB SCH ×2 (01:49→10:46)
[2023-02-08 07:03] LABS: Hematocrit 34.2 % (35-45); Hemoglobin 11.8 g/dL (11.5-14.3); Mean Platelet Volume 7.2 fL (7.5-11.2); Platelet Count 210 10^3/uL (150-450)
[2023-02-08 07:17] LABS: Calcium 8.3 mg/dL (8.6-10.3); Creatinine, Serum 0.64 mg/dL (0.51-0.95); Potassium 4.4 mmol/L (3.5-5.0); eGFR CKD-EPI 92.7 (>60)
[2023-02-08] MEDS: Magnesium Hydroxide LIQ 30 ML UDC PO SCH (07:54)
[2023-02-08] MEDS: Vitamin THERAPEUTIC TAB PO SCH (07:54)
[2023-02-08 14:25] VITALS: BP 116/59
== END 2023-02-08 15:55 | disposition home or self-care (01) ==
LOC: OR 07:01 → SSU 07:01
PROVIDERS: ADMIT Orthopaedic Surgery Adult Reconstructive Orthopaedic Surgery; ATTEND Orthopaedic Surgery Adult Reconstructive Orthopaedic Surgery